=== PATIENT | female | born 1960 | race Caucasian/White ===

== ENCOUNTER 2018-01-05 08:18 | Day surgery (SDC) | payer OTHER ==
[2018-01-05] MEDS ORDERED: LIDOCAINE 100 MG SYRINGE (09:52)
[2018-01-05] MEDS ORDERED: PROPOFOL 60 ML (09:52)
== END 2018-01-05 12:01 | disposition home or self-care (01) ==
LOC: GIL 08:18
DX: K92.1 Melena (principal); K29.60 Other gastritis without bleeding; K44.9 Diaphragmatic hernia without obstruction or gangrene; K21.9 Gastro-esophageal reflux disease without esophagitis; K57.90 Diverticulosis of intestine, part unspecified, without perforation or abscess without bleeding; K64.8 Other hemorrhoids; E11.9 Type 2 diabetes mellitus without complications; I10 Essential (primary) hypertension; E78.5 Hyperlipidemia, unspecified
CPT/HCPCS: 43239; 82962; 87081